=== PATIENT | female | born 1935 | race Caucasian/White ===

== ENCOUNTER → 2016-10-23 | Outpatient (CLI) | payer MEDICARE ==
[~2016-10-23] MED LIST: CHOL5000 PO; CHOL50008 PO; MACR100C2 PO; VITA500030 CHEW; VITATAB11 PO
[2016-10-23 12:28] LABS: AUTOMATED NEUTROPHIL # 3.5 TH/MM3 (1.8-7.7); BASOPHIL % 0.6 % (0.0-2.0); EOSINOPHIL # 0.2 TH/MM3 (0-0.4); EOSINOPHIL % 2.8 % (0.0-4.0); HEMATOCRIT 42.6 % (35.0-46.0); HEMO FLAGS DIFF FINAL; LYMPH % 30.3 % (9.0-44.0); LYMPHOCYTE # 1.9 TH/MM3 (1.0-4.8); MEAN CELL VOLUME 88.5 FL (80.0-100.0); MEAN CORPUSCULAR HEMOGLOBIN 29.3 PG (27.0-34.0); MEAN CORPUSCULAR HGB CONC 33.1 % (32.0-36.0); MONO % 11.4 % (0.0-8.0); NEUT % 54.9 % (16.0-70.0); PLATELET COUNT 201 TH/MM3 (150-450); RED BLOOD COUNT 4.81 MIL/MM3 (4.00-5.30); RED CELL DISTRIBUTION WIDTH 13.4 % (11.6-17.2); WHITE BLOOD COUNT 6.3 TH/MM3 (4.0-11.0)
[2016-10-23 12:33] LABS: BACTERIA, URINE MANY /hpf; BLOOD, URINE TRACE (NEG); COMMENT (UR) CULTURE INDICATED; CULTURE IF INDICATED CULTURE INDICATED; GLUCOSE,URINE NEG (NEG); KETONE, URINE NEG (NEG); NITRITE,URINE NEG (NEG); SQUAMOUS EPITHELIAL CELL URINE 5 /hpf (0-5); TRANSITIONAL EPI CELLS, URINE <1 /hpf; URINE COLOR YELLOW (YELLW/STRAW)
[2016-10-23 12:42] LABS: ALKALINE PHOSPHATASE 79 U/L (45-117); ALT (GPT) 23 U/L (10-53); ANION GAP 6 MEQ/L (5-15); AST (GOT) 16 U/L (15-37); BICARBONATE 30.3 MEQ/L (21.0-32.0); BLOOD UREA NITROGEN 19 MG/DL (7-18); CHLORIDE 106 MEQ/L (98-107); GLOMERULAR FILTRATION RATE 78 ML/MIN (>89); GLUCOSE,FASTING 110 MG/DL (74-99); POTASSIUM 4.5 MEQ/L (3.5-5.1); SODIUM (NA) 142 MEQ/L (136-145); TOTAL BILIRUBIN ADULT 0.6 MG/DL (0.2-1.0)
--- NOTE | 2016-10-24 15:48 | EKG ---
Date Performed: 10/23/2016 Time Performed: 11:41:27 PTAGE: 81 years EKG: ECTOPIC ATRIAL RHYTHM LEFT ANTERIOR FASCICULAR BLOCK LEFT VENTRICULAR HYPERTROPHY AND ST-T CHANGE ABNORMAL ECG NO PREVIOUS TRACING DOCTOR: Rgio Jara Interpretating Date/Time 10/24/2016 15:40:42
== END ==
LOC: CPRE 11:14
PROVIDERS: ATTEND Obstetrics & Gynecology Gynecology
DX: Z01.810 Encounter for preprocedural cardiovascular examination (principal); Z01.812 Encounter for preprocedural laboratory examination; N81.10 Cystocele, unspecified; I44.4 Left anterior fascicular block; I51.7 Cardiomegaly; B96.20 Unspecified Escherichia coli [E. coli] as the cause of diseases classified elsewhere; R82.90 Unspecified abnormal findings in urine
CPT/HCPCS: 36415; 80053; 81001; 85025; 87077; 87086; 87186; 93005

== ENCOUNTER → 2016-10-29 | Day surgery (SDC) | payer MEDICARE ==
--- NOTE | 2016-10-23 11:54 | MH ---
cc: CARRIE MICHELE MD DATE OF ADMISSION: 10/29/2016 REASON FOR ADMISSION Scheduled for anterior repair and pelvic repair. HISTORY OF PRESENT ILLNESS The patient is a 80-year-old white female, 5, para 5, status post prior hysterectomy and BSO. She had a biodegradable mesh placed in 2010 for cystocele. She has noted recurrence of the symptomatology. Discussed the use of the mesh with her prior urologist and he confirms that the mesh was indeed biodegradable and should not have any remnants of the mesh remaining. PAST MEDICAL HISTORY 1. Hypertension. 2. Kidney stones. 3. Otherwise negative for heart, lung, liver disease, diabetes or stroke. PAST SURGICAL HISTORY 1. Total abdominal hysterectomy, bilateral salpingo-oophorectomy. 2. Cystocele repair with biodegradable mesh. 3. Appendectomy. 4. Tonsillectomy. MEDICATIONS None. ALLERGIES None. GYNECOLOGIC HISTORY No STDs or abnormal Pap smears. OBSTETRICAL HISTORY Five vaginal deliveries, largest baby 8 pounds FAMILY HISTORY Noncontributory. SOCIAL HISTORY with good social support. No alcohol, tobacco or drugs. REVIEW OF SYSTEMS As above. No chest pain, orthopnea, PND. No nausea, vomiting, fever or chills. No vaginal bleeding or discharge. No stress incontinence. Main symptoms are bulging sensation in the vagina and pelvic pressure. PHYSICAL EXAMINATION VITAL SIGNS: She is afebrile; vital signs stable. Blood pressure is 120/76, height is 5'4", weight 155, BMI is 26.5. GENERAL: The patient is alert and oriented, in no acute distress. No sign of cognitive dysfunction or depression. HEENT: Within normal limits. NECK: Supple. No JVD. CHEST: Clear. HEART: Regular rate and rhythm. ABDOMEN: Soft, nontender. No hepatosplenomegaly. No CVA tenderness. PELVIC EXAM: Will be detailed under anesthesia. In the office we note a Pop Q score with Aa of 0, Ap is -1. Point C is -8. Genital hiatus is 6. Perineal body is 4. Levator muscles are 2/5. Sacral nerve reflex is decreased. There is no mesh palpable. Further exam under anesthesia. EXTREMITIES: Normal. SKIN: Without rash. NEUROLOGIC: Nonfocal. No DVT signs. ASSESSMENT Patient with Stage II pelvic organ prolapse predominately anterior. The patient and I have discussed her options for management and treatment. She is aware of the risks, benefits, alternatives of the planned procedure including damage to surrounding organs, bleeding, infection. She has had a mesh placed but apparently it is biodegradable so there really should not be any persistent mesh but she is still at some increased risk for surgical complications because of her prior surgery. She elects to proceed. The patient notes that if there are any other significant pelvic floor defect apparent during her exam under anesthesia, she would wish to repair that and we will acquiesce to her wishes in this area. Anticipate outpatient procedure. We will use antibiotic prophylaxis, Ancef 2 grams, and DVT prophylaxis, sequential compression device. MD MILDAY [place]/IVON /11:17 AM /11:26 AM
[~2016-10-29] VITALS: Ht 162.6 cm; Wt 73.4 kg
[~2016-10-29] MED LIST changes: +ACETAMINOPHEN 1000 MG/100 ML VIAL IV ONE; +CHLORHEXIDINE GLUCONATE 2 % 1 PACK (2 CLOTHS) TOPICAL PRN; +DO NOT ADM ANY ANTICOAGULANT DRUGS PRN; +ESTROGENS CONJUGATED VAG CREA 15 APPL/30 GM TUBE ONE; +ESTROGENS CONJUGATED VAG CREA 15 APPL/30 GM TUBE VAGINAL ONE; +FAMOTIDINE 20 MG/2 ML VIAL ONE; +FLUORESCEIN SOD 10% SOLN 500 MG/5 ML AMP IV ONE; +FLUORESCEIN SOD 10% SOLN 500 MG/5 ML AMP ONE; +INSULIN HUMAN REGULAR 1,000 UNITS/10 ML VIAL SQ PRN; +KETOROLAC TROMETHAMINE 30 MG/ML (IVP) VIAL IV PUSH PRN; +KETOROLAC TROMETHAMINE 60 MG/2 ML (IM) VIAL IM ONE; +LACTATED RINGER'S 1000 ML IV PRN; +LIDOCAINE 1%/EPINEPHrine 1:100,000 SOLN 30 ML VIAL INFIL ONE; +LIDOCAINE 1%/EPINEPHrine 1:100,000 SOLN 50 ML VIAL ONE; +METHYLENE BLUE 10 MG/ML VIAL OTHER ONE; +METOPROLOL TARTRATE 25 MG TAB PO PRN; +MIDAZOLAM HCL 2 MG/2 ML VIAL ONE; +ONDANSETRON HCL 4 MG/2 ML VIAL IV PUSH ONE; +ONDANSETRON HCL 4 MG/2 ML VIAL IV PUSH PRN; +POVIDONE IODINE 5% (ANTISEPSIS KIT) 4 APPLICATIONS EACH NARE PRN; +PROPOFOL 200 MG/20 ML AMP IV ONE; +SODIUM CHLORID 0.9% 500 ML IV PRN; -VITA500030 CHEW; +ceFAZolin 2 GM PREMIX 50 ML IV ONE; +ePHEDrine/NS 25 MG/5 ML SYR IV ONE; +fentaNYL CITRATE 250 MCG/5 ML AMP ONE; +traMADol HCL 50 MG TAB PO PRN
[2016-10-29 07:21] VITALS: BP 180/86; PULSE 78; RESP 18; TEMP 97.9; O2SAT 97
[2016-10-29 12:17] VITALS: BP 134/57; PULSE 89; RESP 18; TEMP 97.3; O2SAT 94
--- NOTE | 2016-10-29 19:10 | EKG ---
Date Performed: 10/29/2016 Time Performed: 10:27:12 PTAGE: 81 years EKG: Sinus rhythm WITH FREQUENT SUPRAVENTRICULAR PREMATURE COMPLEXES LEFT ANTERIOR FASCICULAR BLOCK VOLTAGE CRITERIA F OR LVH ABNORMAL ECG PREVIOUS TRACING : 10/23/2016 11.41 Compared to prior tracing no significant change DOCTOR: Krystal Phillips Interpretating Date/Time 10/29/2016 19:09:22
--- NOTE | 2016-10-30 17:26 | MP ---
cc: CARRIE MICHELE DATE OF SURGERY 10/29/16 PREOPERATIVE DIAGNOSES Pelvic organ prolapse anterior compartment. POSTOPERATIVE DIAGNOSES 1. Pelvic organ prolapse anterior compartment-Stage/grade 2 2. Posterior compartment defect-Stage/grade 2 3. Apical defect-Stage/grade 2 PROCEDURE 1. Anterior posterior repair with enterocele repair. 2. Apical vaginal suspension with coccygeus technique. 3. Diagnostic cystoscopy SURGEON Dr. Celsa Michele VESSEL WELDER [facility] staff x2 ANESTHESIA Laryngeal mask BLOOD LOSS 25 mL URINE OUTPUT 200 mL FLUIDS 1000 mL crystalloid FINDINGS External genitalia poorly estrogenized. Pop Q score Aa +1, Ap is zero. Point C is -4, total vaginal length is eight. Genital hiatus is six. Perineal body is 4. Following repair Aa is -3, Ap is -3, point C is -7, total vaginal length is eight. General hiatus is six. Perineal body is four. Bladder with cystoscopy shows normal trigone. good coaptation of urethra. Ureteral orifices patent x2. Dome of base of bladder normal. Rectal exam normal following repair. SPECIMENS Anterior and posterior vaginal mucosa COMPLICATIONS None DISPOSITION Recovery room stable COUNTS Needle, sponge counts correct. DRAINS Paris catheter PROPHYLAXIS Antibiotic prophylaxis Ancef 2 grams IV, DVT prophylaxis sequential compression device. Time-out procedure per protocol SUMMARY OF INDICATION FOR PROCEDURE The patient with symptomatic pelvic organ prolapse, anterior compartment predominant. The patient had prior biodegradable mesh placed. PROCEDURE IN DETAIL The patient was taken to the operating theater and prepped and draped in fashion appropriate for planned procedure. She was in dorsal lithotomy position with careful attention paid to placement of legs in stirrups to avoid undue stress to sensitive neurovascular structures. Above findings noted. Neurovascular ____ documented. Paris catheter was placed. Methylene blue was instilled into the bladder. Most obstructing defect was anterior compartment. The apex of vagina was identified and grasped with Allis clamps. We then infiltrated with epinephrine lidocaine solution. We made a midline incision with Metzenbaum scissors from the apex to approximately 1 cm from the urethral meatus. There was above average amount of scarring consistent with her prior history of biodegradable sling placement, but we were able to dissect and mobilize the bladder with no spilled methylene blue. Anterior enterocele was encountered and closed with delayed absorbable suture. The bowel was not involved with the enterocele. The anterior repair was performed with delayed absorbable suture and the vaginal mucosa was trimmed and then the vaginal mucosa was closed with a running Vicryl suture in locking technique and hemostatic matrix was used to obviate the need for packing. Cystoscopy was performed using a 17-Uzbek bridge and a 70 degree scope. The patient had received IV fluorescein. We identified ureteral patency x2 and no compromise of the bladder with suture. The patient had more posterior apical prolapse then we had appreciated in the office and she had expressed desire to have any repairs performed in one setting. We performed a posterior repair in standard fashion with infiltration of epinephrine Lidocaine solution. We made a midline incision up to approximately 1 cm from the prior incision. We then mobilized the rectum, had one finger in the rectum to provide traction and countertraction. Enterocele was encountered. This was closed with delayed absorbable suture. Rectocele was repaired with delayed absorbable suture. The vaginal mucosa was trimmed. The vaginal apex was supported to the predominantly right side of the coccygeus complex. The vaginal mucosa was closed, hemostatic matrix used to obviate the need for packing, suture line intact. Rectal exam normal following repair. Pop Q score as above. Procedure was concluded. The patient reversed from anesthesia, taken to recovery room in stable condition. MD MILADY [place]/ /9:52 AM /5:05 PM MARSHA
== END | disposition home or self-care (01) ==
LOC: HSDC 06:51
PROVIDERS: ATTEND Obstetrics & Gynecology Gynecology
DX: N99.3 Prolapse of vaginal vault after hysterectomy (principal); Z90.710 Acquired absence of both cervix and uterus; I10 Essential (primary) hypertension; Z87.442 Personal history of urinary calculi; Z01.810 Encounter for preprocedural cardiovascular examination
CPT/HCPCS: 00942; 57265; 57282; 88302; 93005; J0131; J0690; J1885; J2250; J2405; J3010; J7120